=== PATIENT | female | born 1960 | race American Indian/Alaskan Native ===

== ENCOUNTER 2017-02-07 09:44 | Emergency (ER) | payer OTHER ==
[2017-02-07 10:27] LABS: Basophils % (Auto) 0.8 % (0.0-1.8); Eosinophils % (Auto) 4.5 % (0.0-4.3); Hematocrit 37.6 % (30.3-42.9); Hemoglobin 11.6 gm/dl (10.1-14.3); Mean Corpuscular HGB Conc 31 % (30-34); Mean Corpuscular Volume 72 fl (79-97); Platelet Count 276 K/mm3 (140-440); Red Blood Count 5.26 M/mm3 (3.65-5.03); Red Cell Distribution Width 16.1 % (13.2-15.2); White Blood Count 4.6 K/mm3 (4.5-11.0)
[2017-02-07 10:31] LABS: Mean Corpuscular Hemoglobin 22 pg (28-32)
--- NOTE | 2017-02-07 10:39 | XRay Report ---
Chest 2 views: History: Lightheadedness/dizziness. COPD. Findings: Normal cardiomediastinal silhouette. Trachea is midline. No consolidation, pneumothorax or pleural effusion. Impression: No acute cardiopulmonary findings.
[2017-02-07 10:45] LABS: Alanine Aminotransferase 9 units/L (7-56); Albumin 3.8 g/dL (3.9-5); Albumin/Globulin Ratio 1.1 %; Alkaline Phosphatase 57 units/L (35-129); Anion Gap 15 mmol/L; BUN/Creatinine Ratio 11.42; Blood Urea Nitrogen 8 mg/dL (7-17); Calcium 8.8 mg/dL (8.4-10.2); Carbon Dioxide 29 mmol/L (22-30); Glucose 109 mg/dL (65-100); Potassium 3.9 mmol/L (3.6-5.0); Sodium 140 mmol/L (137-145); Total Protein 7.2 g/dL (6.3-8.2)
[2017-02-07] MEDS ORDERED: TORADOL IM ONE (12:31)
--- NOTE | 2017-02-07 12:36 | Emergency Department Report ---
ED Shortness of Breath HPI - General Chief Complaint: Weakness Stated Complaint: SOB Time Seen by Provider: 02/07/17 12:21 Source: patient Mode of arrival: Ambulatory Limitations: No Limitations - History of Present Illness Initial Comments: PATIENT STATED THAT SHE HAS THIS SYMPTOMS FOR THE LAST 3 WKS, SHE WAS GIVEN ANTIBIOTICS BY HER PCP BUT NO HELP. MD Complaint: shortness of breath, cough, chest pain -: week(s) Severity: moderate Pain Scale: 6 Quality: sharp Improves With: oxygen, bronchodilators Known History Of: COPD Associated Symptoms: chest pain, fever, cough, sputum production - Related Data Home Medications Medication Instructions Recorded Confirmed Last Taken Fluticasone/Salmeterol [Advair 1 each IH Q6H 10/18/13 10/18/13 Unknown Diskus 500-50 mcg] levETIRAcetam [Keppra TAB] 750 mg PO BID 10/18/13 10/18/13 Unknown Previous Rx's Medication Instructions Recorded Last Taken Type ALBUTEROL Inhaler [ProAir HFA 2 puff IH QID PRN #1 inhalation 05/12/13 Unknown Rx Inhaler] oxyCODONE /ACETAMINOPHEN [Percocet 1 tab PO Q6H PRN #20 tablet 10/20/13 Unknown Rx 5/325 mg] ALBUTEROL Inhaler [ProAir HFA 2 puff IH QID PRN #1 inhalation 12/09/14 Unknown Rx Inhaler] Azithromycin [Zithromax Z-ROCK] 0 mg PO DAILY 5 Days 06/15/15 Unknown Rx Omeprazole [PriLOSEC] 20 mg PO QDAY #7 capsule. 06/15/15 Unknown Rx Prednisone [predniSONE 5 mg (6-Day 5 mg PO .TAPER #1 tab.ds.pk 06/15/15 Unknown Rx Pack, 21 Tabs)] Ibuprofen [Motrin] 600 mg PO Q8H PRN #50 tablet 01/07/16 Unknown Rx traMADol [Ultram 50 MG tab] 50 mg PO Q6HR PRN #20 tablet 01/07/16 Unknown Rx HYDROcodone/APAP 5-325 [[place] 1 each PO Q6HR PRN #14 tablet 02/07/17 Unknown Rx 5/325] Levofloxacin [Levaquin TAB] 500 mg PO QDAY #7 tablet 02/07/17 Unknown Rx Ondansetron [Zofran Odt] 4 mg PO Q8HR PRN #14 tab.rapdis 02/07/17 Unknown Rx P-Ephed HCl/Codeine/Guaifen 10 ml PO Q4H PRN #100 ml 02/07/17 Unknown Rx [Cheratussin DAC 30-10-100 mg/5 ml] Allergies Allergy/AdvReac Type Severity Reaction Status Date / Time shellfish derived Allergy Shortness Verified 02/07/17 09:59 of Breath ED Review of Systems ROS: Stated complaint: SOB Other details as noted in HPI Comment: All other systems reviewed and negative Constitutional: fever. denies: chills Respiratory: cough Cardiovascular: chest pain Gastrointestinal: denies: abdominal pain, nausea Neurological: denies: headache, weakness, numbness, paresthesias ED Past Medical Hx - Past Medical History Hx Congestive Heart Failure: No Hx Diabetes: No Hx Pulmonary Embolism: No Hx Seizures: Yes Hx Asthma: Yes Hx COPD: Yes Hx Tuberculosis: No Additional medical history: sleep apnea - Surgical History Hx Breast Surgery: Yes (LUMP REMOVED RIGHT BREAST) - Social History Smoking Status: Never Smoker Substance Use Type: None - Medications Home Medications: Home Medications Medication Instructions Recorded Confirmed Last Taken Type ALBUTEROL Inhaler [ProAir HFA 2 puff IH QID PRN #1 inhalation 05/12/13 10/18/13 Unknown Rx Inhaler] Fluticasone/Salmeterol [Advair 1 each IH Q6H 10/18/13 10/18/13 Unknown History Diskus 500-50 mcg] levETIRAcetam [Keppra TAB] 750 mg PO BID 10/18/13 10/18/13 Unknown History oxyCODONE /ACETAMINOPHEN [Percocet 1 tab PO Q6H PRN #20 tablet 10/20/13 Unknown Rx 5/325 mg] ALBUTEROL Inhaler [ProAir HFA 2 puff IH QID PRN #1 inhalation 12/09/14 Unknown Rx Inhaler] Azithromycin [Zithromax Z-ROCK] 0 mg PO DAILY 5 Days 06/15/15 Unknown Rx Omeprazole [PriLOSEC] 20 mg PO QDAY #7 capsule. 06/15/15 Unknown Rx Prednisone [predniSONE 5 mg (6-Day 5 mg PO .TAPER #1 tab.ds.pk 06/15/15 Unknown Rx Pack, 21 Tabs)] Ibuprofen [Motrin] 600 mg PO Q8H PRN #50 tablet 01/07/16 Unknown Rx traMADol [Ultram 50 MG tab] 50 mg PO Q6HR PRN #20 tablet 01/07/16 Unknown Rx HYDROcodone/APAP 5-325 [[place] 1 each PO Q6HR PRN #14 tablet 02/07/17 Unknown Rx 5/325] Levofloxacin [Levaquin TAB] 500 mg PO QDAY #7 tablet 02/07/17 Unknown Rx Ondansetron [Zofran Odt] 4 mg PO Q8HR PRN #14 tab.rapdis 02/07/17 Unknown Rx P-Ephed HCl/Codeine/Guaifen 10 ml PO Q4H PRN #100 ml 02/07/17 Unknown Rx [Cheratussin DAC 30-10-100 mg/5 ml] ED Physical Exam - General Limitations: No Limitations General appearance: alert, in no apparent distress - Eye Eye exam: Present: normal appearance - Neck Neck exam: Present: normal inspection - Respiratory Respiratory exam: Present: normal lung sounds bilaterally. Absent: wheezes, rales, rhonchi, chest wall tenderness, accessory muscle use, decreased breath sounds, prolonged expiratory - GI/Abdominal GI/Abdominal exam: Present: soft. Absent: tenderness - Neurological Exam Neurological exam: Present: alert, oriented X3, CN II-XII intact - Skin Skin exam: Present: warm, dry, intact ED Course Vital Signs 02/07/17 02/07/17 02/07/17 09:52 12:03 12:04 Temperature 98.0 F 97.7 F Pulse Rate 84 80 Respiratory 19 16 16 Rate Blood Pressure 129/78 Blood Pressure 116/74 [Left] O2 Sat by Pulse 97 98 98 Oximetry ED Medical Decision Making - Lab Data Result diagrams: 02/07/17 10:12 02/07/17 10:12 Critical care attestation.: If time is entered above; I have spent that time in minutes in the direct care of this critically ill patient, excluding procedure time. ED Disposition Clinical Impression: Chest pain, atypical, Acute bronchitis Disposition: DC-01 TO HOME OR SELFCARE Is pt being admited?: No Does the pt Need Aspirin: No Condition: Stable Instructions: Chest Pain (ED), Acute Bronchitis (ED) Prescriptions: HYDROcodone/APAP 5-325 [[place] 5/325] 1 each PO Q6HR PRN #14 tablet PRN Reason: Pain Levofloxacin [Levaquin TAB] 500 mg PO QDAY #7 tablet Ondansetron [Zofran Odt] 4 mg PO Q8HR PRN #14 tab.rapdis PRN Reason: Vomiting P-Ephed HCl/Codeine/Guaifen [Cheratussin DAC 30-10-100 mg/5 ml] 10 ml PO Q4H PRN #100 ml PRN Reason: Cough
[2017-02-07 12:53] VITALS: BP 116/74
== END 2017-02-07 13:02 | disposition home or self-care (01) ==
LOC: ED 09:44
DX: R07.89 Other chest pain (principal); J20.9 Acute bronchitis, unspecified; J45.909 Unspecified asthma, uncomplicated; J44.9 Chronic obstructive pulmonary disease, unspecified; G47.30 Sleep apnea, unspecified; Z91.013 Allergy to seafood
CPT/HCPCS: 36415; 71020; 80053; 84484; 85025; 93005; 93010; 96372; 99284; J1885